=== PATIENT | male | born 1935 | race Caucasian/White ===

== ENCOUNTER 2019-09-24 05:46 | Day surgery (SDC) | payer MEDICARE, OTHER ==
[~2019-09-24 05:46] MED LIST: Buffered Lidocaine 1% SYRIN* 1 ML/SYRINGE INTRADERM ONE
[2019-09-24] MEDS ORDERED: Lactated Ringers 1000 ML Bag* 1,000 ML IV SCH (06:00)
[2019-09-24] MEDS ORDERED: Buffered Lidocaine 1% SYRIN* 1 ML/SYRINGE INTRADERM ONE (06:12)
[2019-09-24] MEDS ORDERED: ceFAZolin 2 GM PREMIX in ORs 2 GM/50 ML BAG ONE (06:12)
[2019-09-24] MEDS ORDERED: Lidocaine 1% w EPI 1:100,000* MDV 20 ML VIAL ONE (07:00)
[2019-09-24] MEDS ORDERED: Artificial Tear OPHTH.OINT* 3.5 GM ONE (07:12)
[2019-09-24] MEDS ORDERED: Bupivacaine 0.25% SDV* 30 ML ONE (07:12)
[2019-09-24] MEDS ORDERED: KETAMINE HCL* 50 MG/ML 10 ML VIAL ONE (07:20)
[2019-09-24] MEDS ORDERED: Midazolam* 1 MG/ML 2 ML VIAL (2 MG) ONE ×2 (07:20→08:20)
[2019-09-24] MEDS ORDERED: Propofol* 10 MG/ML 20 ML BTL ONE (07:20)
[2019-09-24] MEDS ORDERED: Lidocaine 2% PF * 5 ML VIAL ONE (07:21)
[2019-09-24] MEDS ORDERED: Succinylcholine* 20 MG/ML 10 ML VIAL ONE (07:33)
[2019-09-24] MEDS ORDERED: Ondansetron INJ* 2 MG/ML VIAL IV PRN (08:03)
[2019-09-24] MEDS ORDERED: Naloxone* 0.4 MG/ML 1 ML VIAL IV PRN (08:03)
[2019-09-24] MEDS ORDERED: Acetaminophen TAB* 325 MG PO PRN (08:03)
[2019-09-24] MEDS ORDERED: Ketorolac INJ* 30 MG/ML 1 ML VIAL IV PRN (08:03)
[2019-09-24 09:58] VITALS: BP 129/79
== END 2019-09-24 09:58 | disposition home or self-care (01) ==
LOC: OR 05:46
PROVIDERS: ATTEND Plastic Surgery
DX: C44.321 Squamous cell carcinoma of skin of nose (principal); I10 Essential (primary) hypertension; I49.3 Ventricular premature depolarization; E78.5 Hyperlipidemia, unspecified; E03.9 Hypothyroidism, unspecified; E11.9 Type 2 diabetes mellitus without complications; Z79.84 Long term (current) use of oral hypoglycemic drugs; Z85.828 Personal history of other malignant neoplasm of skin; M19.90 Unspecified osteoarthritis, unspecified site
CPT/HCPCS: 88305; 88331; 88332; J0330; J0690; J2250; J2704; J3490